=== PATIENT | female | born 1995 | race Caucasian/White ===

== ENCOUNTER 2018-04-06 12:31 | Emergency (ER) | END 2018-04-06 16:38 | disposition home or self-care (01) ==

== ENCOUNTER 2018-05-11 00:32 | Emergency (ER) | END 2018-05-11 05:30 | disposition left against medical advice (07) ==

== ENCOUNTER 2018-09-29 16:07 | Outpatient (CLI) | END 2018-09-29 18:22 | disposition home or self-care (01) ==

== ENCOUNTER 2019-04-01 02:57 | Emergency (ER) | payer MEDICAID ==
[~2019-04-01] VITALS: Ht 154.9 cm; Wt 57.4 kg
[~2019-04-01 02:57] MED LIST: PREN-93 PO
[2019-04-01 03:07] VITALS: BP 107/53; PULSE 69; RESP 20; Ht 154.9 cm; Wt 57.4 kg
[2019-04-01] MEDS ORDERED: AMOX500C2 PO (04:11)
--- NOTE | 2019-04-01 04:16 | ERD ---
ER Documentation Chief Complaint Chief Complaint possible left ear foreign body x 20 minutes, left ear with dry blood HPI Patient is a 23-year-old female who presents the ER for concerns of a foreign body sensation in her left ear which started prior to arrival. Patient states she was sleeping when she felt a pop in her ear and felt like there was something in her ear. Patient states that she knows that her ear was bleeding. Patient is concerned there may be a bug in the ear because the windows were open. Patient denies any fevers or chills. Patient states she has had some ear pain over the last few days. No recent travel. ROS All systems reviewed and are negative except as per history of present illness. Medications Home Meds Active Scripts Amoxicillin* (Amoxicillin*) 500 Mg Cap, 500 MG PO BID for 7 Days, CAP Prov:CRYSTAL ESCOBAR PA-C 04/01/19 Reported Medications Vit No.124/Iron/FA ( Vitamin Tablet) 1 Each Tablet, 1 EACH PO DAILY, TAB 09/29/18 Allergies Allergies: Coded Allergies: peanut (Verified Allergy, Unknown, 04/01/19) PMhx/Soc Hx Alcohol Use: No Hx Substance Use: No Hx Tobacco Use: No FmHx Family History: No diabetes Physical Exam Vitals Vital Signs Date Temp Pulse Resp B/P (MAP) Pulse Ox O2 O2 Flow FiO2 Time Delivery Rate 04/01/19 97.2 69 20 107/53 100 03:07 (71) Physical Exam GENERAL: Well-developed, well-nourished female. Appears in no acute distress. Speaking in full sentences. HEAD: Normocephalic, atraumatic. EYES: Pupils are equally reactive bilaterally. EOMs grossly intact. No conjunctival erythema. ENT: Moist mucous membranes. No uvula deviation. No kissing tonsils. Dried blood noted in the right auditory canal with bright red blood near the right TM. No foreign bodies noted. TM appears erythematous, nonbulging. No mastoid ecchymosis or swelling. NECK: Supple. No meningismus. Normal range of motion of the neck. LUNG: Clear to auscultation bilaterally. No rhonchi, wheezing, rales or coarse breath sounds. HEART: Regular rate and rhythm. No murmurs, rubs or gallops. EXTREMITIES: Equal pulses bilaterally. No peripheral clubbing, cyanosis or edema. No unilateral leg swelling. NEUROLOGIC: Alert and oriented. Moving all four extremities without any difficulty. Normal speech. Steady gait. SKIN: Normal color. Warm and dry. No rashes or lesions. Procedures/MDM MEDICAL DECISION MAKING: This is a 23-year-old female presents to the ER for concerns of left ear foreign body sensation as well as bleeding. Vital signs were reviewed. Patient was afebrile. Patient was not hypoxic. On exam, no foreign bodies were noted. Patient did have dried blood in her auditory canal as well as bright red blood closer to the TM. Patient likely had a tympanic membrane rupture which she feels is a foreign body. Patient was advised to take antibiotics as prescribed. Patient was advised to follow-up with ENT specialist. Patient advised not to get any water into her ear. Low suspicion for mastoiditis, otic barotrauma, TMJ dysfunction. PRESCRIPTIONS: Amoxicillin DISCHARGE: At this time, patient is stable for discharge and outpatient management. I have instructed the patient to follow-up with his/her primary care physician in 1-2 days. I have discussed with the patient the possibility of needing to see a specialist for further workup and diagnostic studies if the pain persists. I have instructed the patient to promptly return to the ER at any time for any new or worsening symptoms including increased pain, fever, swelling, discharge or hearing loss. The patient and/or family expressed understanding of and agreement with this plan. All questions were answered. Home care instructions were provided. Disclaimer: Inadvertent spelling and grammatical errors are likely due to EHR/dictation software use and do not reflect on the overall quality of patient care. Also, please note that the electronic time recorded on this note does not necessarily reflect the actual time of the patient encounter. Departure Diagnosis: Primary Impression: Tympanic membrane perforation Laterality: left Qualified Codes: H72.92 - Unspecified perforation of tympanic membrane, left ear Condition: Fair Patient Instructions: Ruptured Tm, Infected (Adult) Referrals: MADHURI ROBISON MD, DEVAN HERNANDEZ,GUNJAN CARTER,LASHELL PACE,TONIA Freitas MD [facility] YOU HAVE RECEIVED A MEDICAL SCREENING EXAM AND THE RESULTS INDICATE THAT YOU DO NOT HAVE A CONDITION THAT REQUIRES URGENT TREATMENT IN THE EMERGENCY DEPARTMENT. FURTHER EVALUATION AND TREATMENT OF YOUR CONDITION CAN WAIT UNTIL YOU ARE SEEN IN YOUR DOCTORS OFFICE WITHIN THE NEXT 1-2 DAYS. IT IS YOUR RESPONSIBILITY TO MAKE AN APPOINTMENT FOR FOLOW-UP CARE. IF YOU HAVE A PRIMARY DOCTOR --you should call your primary doctor and schedule an appointment IF YOU DO NOT HAVE A PRIMARY DOCTOR YOU CAN CALL OUR PHYSICIAN REFERRAL HOTLINE AT IF YOU CAN NOT AFFORD TO SEE A PHYSICIAN YOU CAN CHOSE FROM THE FOLLOWING [facility] [address] [facility] [address] [facility] [address] [facility] [address] [facility] [address] [facility]. [facility] [address] [facility]. [facility] YOU HAVE RECEIVED A MEDICAL SCREENING EXAM AND THE RESULTS INDICATE THAT YOU DO NOT HAVE A CONDITION THAT REQUIRES URGENT TREATMENT IN THE EMERGENCY DEPARTMENT. FURTHER EVALUATION AND TREATMENT OF YOUR CONDITION CAN WAIT UNTIL YOU ARE SEEN IN YOUR DOCTORS OFFICE WITHIN THE NEXT 1-2 DAYS. IT IS YOUR RESPONSIBILITY TO MAKE AN APPOINTMENT FOR FOLOW-UP CARE. IF YOU HAVE A PRIMARY DOCTOR --you should call your primary doctor and schedule and appointment IF YOU DO NOT HAVE A PRIMARY DOCTOR YOU CAN CALL OUR PHYSICIAN REFERRAL HOTLINE AT . IF YOU CAN NOT AFFORD TO SEE A PHYSICIAN YOU CAN CHOSE FROM THE FOLLOWING [facility] INSTITUTIONS: [facility] [address] [place] [address] [facility] [address] [place] [address] [facility] [address] [place] [address] [facility] URGENT CARE/SPECIALTIES Additional Instructions: Do not get water in ear. Follow up with ENT specialist. Call your primary care doctor TOMORROW for an appointment during the next 1-2 days.See the doctor sooner or return here if your condition worsens before your appointment time. CRYSTAL ESCOBAR PA-C April 01, 2019 04:16
== END 2019-04-01 04:43 | disposition home or self-care (01) ==
LOC: FTE 02:57
DX: H72.92 Unspecified perforation of tympanic membrane, left ear (principal)
CPT/HCPCS: 99283